=== PATIENT | male | born 1970 | race Caucasian/White ===

== ENCOUNTER 2024-12-05 10:59 | Emergency (ER) | payer BC, SELFPAY ==
[2024-12-05 11:01] VITALS: BP 143/87
[2024-12-05 11:26] LABS: % Basophils 0.6 % (0-2); % Eosinophils 2.3 % (0-6); % Immature Granulocytes 0.4 % (0-0.5); % Lymphocytes 33.8 % (20.5-51.1); % Monocytes 12.5 % (1.7-9.3); % Neutrophils 50.4 % (42.2-75.2); Absolute Eosinophils 0.1 10^3/uL (0-0.7); Absolute Lymphocytes 1.8 10^3/uL (1.2-3.4); Absolute Monocytes 0.7 10^3/uL (0.1-0.6); Absolute Neutrophils 2.6 10^3/uL (1.4-6.5); Hematocrit 46.3 % (39.0-52.0); Mean Corp Hgb Conc. 34.6 g/dL (33.0-37.0); Mean Corpuscular Hgb 29.5 pg (27.0-31.0); Mean Corpuscular Volume 85.4 fL (80.0-94.0); Mean Platelet Volume 8.6 fL (7.4-10.4); Nucleated Red Blood Cells % 0 % (-); Platelet Count 253 10^3/uL (130-400); Red Blood Cell Count 5.42 10^6/uL (4.70-6.10); Red Cell Dist. Width 12.9 % (11.5-14.5); White Blood Cell Count 5.2 10^3/uL (4.8-10.8)
[2024-12-05 11:38] LABS: ALT (SGPT) 40 U/L (0-50); AST (SGOT) 28 U/L (17-59); Albumin 4.6 g/dl (3.5-5.0); Alkaline Phosphatase 44 U/L (38-126); Blood Urea Nitrogen 18 mg/dl (9-20); Calcium 9.2 mg/dl (8.4-10.2); Carbon Dioxide 27 mmol/L (22-30); Chloride 102 mmol/L (98-107); Glucose 112 mg/dl (70-99); Lipase 63 U/L (23-300); Potassium 4.4 mmol/L (3.5-5.1); Sodium 140 mmol/L (135-145); Total Bilirubin 0.8 mg/dl (0.2-1.3); Total Protein 7.6 g/dl (6.3-8.2); eGFR > 60.00
--- NOTE | 2024-12-05 11:49 | ED.GENMED ---
History of Present Illness
General
Chief Complaint: Abdominal Pain
Time Seen by Provider: 12/05/24 11:48
History of Present Illness
History of Present Illness:
TIME OF INITIAL ENCOUNTER: 11:50 AM
HPI: The patient presents with abdominal pain. The pain is primarily localized to the lateral aspect of the right lower quadrant. The pain worsens with certain position changes of the torso and when he flexes at the right hip. He did not
necessarily have any anorexia/loss of appetite but did not eat this morning intentionally.
EXAM:
GENERAL: Well appearing in no distress
HEENT: Moist oral mucosa
CARDIOVASCULAR: No murmurs, normal heart rate, regular rhythm, No chest wall tenderness
PULMONARY: No respiratory distress, breath sounds are clear and equal
ABDOMEN: Soft with no peritoneal signs, no tenderness, there is no significant right lower quadrant tenderness, there is minimal discomfort lateral to the right lower quadrant and there is also some discomfort with palpation of the right inguinal
region
NEUROLOGIC: Excellent strength all extremities, no coordination deficits
PSYCHIATRIC: Appropriate mental status, normal insight and judgement
EXTREMITIES: Nontender, no edema, moves all extremities equally, the patient does have some pain when he flexes at the hip against resistance
SKIN: No rash, no lesions
NUMBER AND COMPLEXITY OF PROBLEMS ADDRESSED AT THE ENCOUNTER
� Chronic conditions affecting care: Hyperlipidemia
� Acute Exacerbation and/or Progression of Chronic Illness: This is an acute problem
� Differential Diagnosis includes: Appendicitis, mesenteric adenitis, highly doubt bowel obstruction, hip flexor pathology, abdominal oblique muscle strain
AMOUNT AND/OR COMPLEXITY OF DATA TO BE REVIEWED AND ANALYZED
� I performed an independent evaluation of and my interpretation is:
EKG:
CT: CT imaging shows no evidence for appendicitis. Fatty liver noted�I discussed this with patient and he does state that he drinks alcohol but not on a daily basis.
X-rays:
Laboratory Studies: White count normal at 5.2, hemoglobin normal, chemistries unremarkable.
Other:
� Review of other/old records: I reviewed records, the patient was here with back pain in 2022
� Clinical information was obtained by an independent historian: None needed
� Prescriptions/Medications Considered but not given: Offered and considered in when she is over the patient declines
� Further testing considered but not performed: No clear indication for MRI at this point but I do's think that the etiology could be muscular in nature
RISK OF COMPLICATIONS AND/OR MORBIDITY OR MORTALITY OF PATIENT MANAGEMENT
� Social determinants of health affecting care: Lives at home
� Discussion with other providers:
� Escalation of care including admission/observation vs risk of discharge considered: Lab work and imaging unremarkable. More strongly suspect a component of muscular etiology such as at the hip flexor/oblique abdominal
musculature
ANY OTHER UPDATES:
Past History
Past History
ED Past Medical History: None
ED Past Surgical History: None
Social History
Tobacco: Non-smoker
Alcohol: Other (Few drinks per week)
Drug: None
Personal:
Living: with family
Employment: Employed
Phy Exam
Physical Exam
Physical Exam:
See HPI
Course
Orders/Labs/Results
Orders:
Orders
12/05/24 11:17
Complete Blood Count/With Diff Urgent
Comprehensive Metabolic Panel Urgent
Lipase Urgent
12/05/24 12:02
CT Abd/pelvis W Iv Cont Urgent
Comment:
Reason For Exam: lateral to RLQ pain worsening
Abnormal Lab Results
12/05/24
11:17
Absolute Monos (auto) 0.7 H 10^3/uL
(0.1-0.6)
Monocytes % 12.5 H %
(1.7-9.3)
Glucose 112 H mg/dl
(70-99)
12/05/24 11:17
12/05/24 11:17
Vital Signs
Initial and Last Documented VS:
Initial Vital Signs
Temp Pulse Resp BP Pulse Ox
36.6 C 69 18 143/87 99
12/05/24 11:01 12/05/24 11:01 12/05/24 11:01 12/05/24 11:01 12/05/24 11:01
Last Documented Vital Signs
Temp Pulse Resp BP Pulse Ox
36.6 C 69 18 133/77 94
12/05/24 11:01 12/05/24 11:01 12/05/24 11:01 12/05/24 12:13 12/05/24 12:15
*Critical Care Note
Total Time (30-74mins, 75-104mins- exclusive of procedures): Not Applicable
ED Attending Note
-
Portions of this chart may have been created with voice recognition software.� Occasional wrong word or��sound alike� substitutions may have occurred due to the inherent limitations of voice recognition software.
Discharge Plan
Departure
Patient Disposition: Home (Routine Discharge)
Date of Disposition: 12/05/24
Time of Disposition: 13:33
Patient with high blood pressure during this ER visit?: Yes
Discharge Problem:
Abdominal pain
Instructions: Abdominal Muscle Strain, Abdominal Pain
Referrals:
Enoch Allen MD [Family Provider] -
Activity Restrictions/Additional Instructions:
The CAT scan of the abdomen pelvis shows no acute abnormality. Blood work is normal. Return here if worse or other concerns. Consider 3-4 [id number]-[id number] ibuprofen (Motrin) every 8 hours with food for a few days. Return here if worse.
Interventions
Interventions:
*Risk Screen - Suicide Last Done: 12/05/24 11:01
*General Assessment Last Done: 12/05/24 11:01
*Neglect/Abuse Screening Last Done: 12/05/24 11:01
ED- Fall Risk Assessment Last Done: 12/05/24 11:35
*ED COVID-19 Vaccine History Last Done: 12/05/24 11:35
*Nursing Disposition Last Done: 12/05/24 14:02
NP-Npuxje-Idvjmtnwrm Assessment Last Done: 12/05/24 11:35
Discharge Date and Time
Discharge Date/Time: 12/05/24 14:03
Print Language: OCCITAN
[2024-12-05 12:13] VITALS: BP 133/77
[2024-12-05 12:14] VITALS: BMI 28.6
== END 2024-12-05 14:03 | disposition home or self-care (01) ==
LOC: EMR 10:59
PROVIDERS: Emergency Medicine; EMERGENCY PHYSICIAN Emergency Medicine; FAMILY PHYSICIAN Internal Medicine
DX: R10.31 Right lower quadrant pain (principal)
CPT/HCPCS: 99284; 74177; 80053; 83690; 85025; Q9967